=== PATIENT | male | born 1965 | race Caucasian/White ===

== ENCOUNTER → 2016-11-30 | Outpatient (CLI) | payer BC | LOC: GMAB 09:18 | PROVIDERS: ATTEND Family Medicine | DX: I10 Essential (primary) hypertension (principal); E56.9 Vitamin deficiency, unspecified; Z98.84 Bariatric surgery status ==

== ENCOUNTER 2017-03-29 10:11 | Emergency (ER) | payer BC ==
--- NOTE | 2017-03-29 12:26 | US ---
Scrotal sonogram CLINICAL HISTORY: Right-sided pain FINDINGS: The right testicle measures 3.9 x 2.9 x 2.7 cm. Normal echotexture. Normal color Doppler flow. Moderate hydrocele Right epididymal nodule or mass lesion, heterogeneous hyperechoic measuring about 1.8 x 1.9 x 1.9 cm. This is a nonspecific primarily solid mass. Left testicle measures 4.1 x 2.6 x 2.5 cm demonstrating normal echotexture. Color flow Doppler is normal. No hydrocele or varicocele IMPRESSION: Heterogeneous nonspecific solid nodule right epididymis. 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 No evidence of torsion Electronically signed by: Akbar Becerra MD 03/29/2017 12:26 PM CDT
--- NOTE | 2017-03-29 13:27 | ED.PDOC ---
History of Present Illness - General Chief Complaint: General Stated Complaint: Right testicular discomfort and swelling Time Seen by Provider: 03/29/17 10:15 Source: patient Exam Limitations: no limitations - History of Present Illness Initial Comments: The patient is a 51-year-old male presenting to the emergency room secondary to right testicular pain and swelling for the last 24-36 hours. No fever and no difficulty with urination. Pain is lessened with raising of the testicle and worse with descent. There is no increase or decrease in pain with turning of the testicle. He has not had any previous episodes of epididymitis or prostatitis. He has not noted any recent trauma. He has stated that he did have an inguinal hernia repair not too long ago on the right. He has been straining a lot with constipation issues recently and is concerned that he may have stretched a hernia repair site. He does feel that the right-sided of his scrotum is significantly more swollen than previously. There is no obvious increased warmth and no visible erythema. the testicle and epididymis is uncomfortable to palpation. Timing/Duration: 24 hours Severity: moderate Improving Factors: nothing Worsening Factors: movement Associated Symptoms: denies symptoms Allergies/Adverse Reactions: Allergies NO KNOWN ALLERGY Allergy (Verified 03/29/17 10:32) Home Medications: Ambulatory Orders Ciprofloxacin [Cipro] 250 mg PO BID #28 tab 03/29/17 Review of Systems - Review of Systems Constitutional: States: no symptoms reported EENTM: States: no symptoms reported Respiratory: States: no symptoms reported Cardiology: States: no symptoms reported Gastrointestinal/Abdominal: States: no symptoms reported Genitourinary: States: see HPI Musculoskeletal: States: no symptoms reported Skin: States: no symptoms reported Neurological: States: no symptoms reported All other Systems: No Change from Baseline Past Medical History (General) - Patient Medical History Hx Stroke: No Hx Congestive Heart Failure: No Hx Hypertension: Yes - prior Hx, but improved after gastric sleeve surgery Hx Diabetes: No - Vaccination History Hx Tetanus, Diphtheria Vaccination: Yes - 2011 Hx Influenza Vaccination: No Hx Pneumococcal Vaccination: No - Social History Hx Tobacco Use: No Family Medical History - Family History Father Family History: Unknown Living Status: Still Living Physical Exam - Physical Exam General Appearance: Alert, Comfortable, No apparent distress Eye Exam: bilateral normal Ears, Nose, Throat: normal ENT inspection, normal pharynx Neck: full range of motion Respiratory: chest non-tender, no respiratory distress, no accessory muscle use Cardiovascular/Chest: normal peripheral pulses, no edema, other - regular rate Peripheral Pulses: radial,right: 2+, radial,left: 2+, dorsalis pedis,right: 2+, dorsalis pedis,left: 2+ Gastrointestinal/Abdominal: non tender, soft, other - o abdominal distention or tenderness to palpation. Rectal Exam: other - the patient does have tenderness to palpation over the distal epididymis. He also has pain to palpation over the right testicle. There is some swelling noted. Back Exam: normal inspection, no CVA tenderness, no vertebral tenderness Extremity: normal range of motion, non-tender, normal inspection, no pedal edema , normal capillary refill Neurologic: alert, normal mood/affect, oriented x 3 Skin Exam: normal color Comments: Vital Signs - 24 hr 03/29/17 03/29/17 03/29/17 10:23 11:20 11:42 Temperature 97.3 F L 96.2 F L Pulse Rate [ 66 61 52 L Left Radial] Respiratory 16 16 16 Rate Blood Pressure 118/74 126/90 115/68 [Right Arm] O2 Sat by Pulse 99 98 98 Oximetry 03/29/17 13:00 Temperature Pulse Rate [ 61 Left Radial] Respiratory 16 Rate Blood Pressure 130/78 [Right Arm] O2 Sat by Pulse 99 Oximetry Progress - Progress Progress: 03/29/17 13:30 the patient is a 51-year-old male presented to the emergency room secondary to right testicular and epididymal pain. Ultrasound shows no evidence of torsion. He does have a nodule on the right epididymis 2 cm in diameter that does need to be followed up with urology for further evaluation. He does have a hydrocele on the right indicating at least the possibility of recent stretching of the inguinal hernia repair site. no evidence family history or the exam of any osiris recurrence of the hernia. Certainly no obstructive symptoms. He can follow up with urology for the hydrocele as well. He does need to wear fairly tight fitting briefs for now to elevate the testicle and reduce discomfort. He does also need to take a form of fiber and MiraLAX to help prevent further constipation and straining which may irritate the hydrocele aspect. The patient is going to be placed on ciprofloxacin for the next 2 weeks in case there is a infectious component to the discomfort, and to reduce the chance of infection being present if a biopsy needs to be performed on the epididymal nodule. ER warnings were given. The patient needs to follow up with his primary care doctor to get set up with urology of their choosing. - Results/Orders Results/Orders: Laboratory Tests 03/29/17 13:00 Urine Color Yellow Urine Appearance Clear Urine pH 5.5 Ur Specific [place] 1.025 Urine Protein Negative Urine Glucose (UA) Negative Urine Ketones Negative Urine Blood Negative Urine Nitrite Negative Urine Bilirubin Negative Urine Urobilinogen 0.2 Ur Leukocyte Esterase Negative Urine RBC 0 Urine WBC 0 Ur Epithelial Cells 0 Urine Bacteria 0 Urine Mucus Small ultrasound of the right testicle shows a hydrocele is present and that there is a nodule on the right epididymis approximately 2 cm in diameter. No evidence of torsion. Departure - Departure Clinical Impression: Hydrocele in adult, Mass of epididymis Disposition: Discharge to Home or Self Care Condition: Fair Departure Forms: ED Discharge - Pt. Copy, Patient Portal Self Enrollment Instructions: DI for Hydrocele-Adult Diet: regular diet Activity: increase activity as tolerated Referrals: Rishabh Contreras MD [Primary Care Provider] - 1-5 Days Prescriptions: Ciprofloxacin [Cipro] 250 mg PO BID #28 tab Home Medications: Ambulatory Orders Ciprofloxacin [Cipro] 250 mg PO BID #28 tab 03/29/17 Additional Instructions: the patient is a 51-year-old male presented to the emergency room secondary to right testicular and epididymal pain. Ultrasound shows no evidence of torsion. He does have a nodule on the right epididymis 2 cm in diameter that does need to be followed up with urology for further evaluation. He does have a hydrocele on the right indicating at least the possibility of recent stretching of the inguinal hernia repair site. no evidence family history or the exam of any osiris recurrence of the hernia. Certainly no obstructive symptoms. He can follow up with urology for the hydrocele as well. He does need to wear fairly tight fitting briefs for now to elevate the testicle and reduce discomfort. He does also need to take a form of fiber and MiraLAX to help prevent further constipation and straining which may irritate the hydrocele aspect. The patient is going to be placed on ciprofloxacin for the next 2 weeks in case there is a infectious component to the discomfort, and to reduce the chance of infection being present if a biopsy needs to be performed on the epididymal nodule. ER warnings were given. The patient needs to follow up with his primary care doctor to get set up with urology of their choosing.
[2017-03-29 13:57] VITALS: BP 121/73; TEMP 97.8; O2SAT 98
== END 2017-03-29 13:45 | disposition home or self-care (01) ==
LOC: ER 10:11
DX: N43.3 Hydrocele, unspecified (principal); N50.9 Disorder of male genital organs, unspecified